=== PATIENT | female | born 1955 | race African-American/Black ===

== ENCOUNTER 2018-12-14 10:38 | Emergency (ER) | payer MEDICARE, OTHER ==
[~2018-12-14] VITALS: Ht 165.1 cm; Wt 86.2 kg
[2018-12-14 10:47] VITALS: BP 137/95
[2018-12-14] MEDS ORDERED: METHOCARBAMOL 500 MG TAB PO ONE (11:00)
[2018-12-14] MEDS ORDERED: KETOROLAC TROMETH 60MG/2ML VIAL IM ONE (11:00)
== END 2018-12-14 11:58 | disposition home or self-care (01) ==
LOC: EDBD 10:38 → ER 10:41
DX: S29.012A Strain of muscle and tendon of back wall of thorax, initial encounter (principal); Z88.0 Allergy status to penicillin; X50.0XXA Overexertion from strenuous movement or load, initial encounter; Y93.89 Activity, other specified; Y99.8 Other external cause status; Y92.89 Other specified places as the place of occurrence of the external cause
CPT/HCPCS: 96372; 99283; J1885